=== PATIENT | female | born 1940 | race Caucasian/White ===

== ENCOUNTER → 2018-05-09 | Outpatient (REF) ==
[~2018-05-09] MED LIST: ATIVAN 2MG2 MG PO; CELEXA20 MG PO; FLUTICASON0.05 MG/Ac NS; LASIX40 MG PO; METHADONE10 MG PO; NITROSTAT0.4 MG SL; PEPCID AC20 M1 PO; PREMARIN 0.60.625 M1 PO; ULTRAM 50MG TAB50 MG PO; VENTOLIN0.09 MG IH
== END ==
LOC: ZLAB.WCH 16:24
DX: Z01.89 Encounter for other specified special examinations (principal)

== ENCOUNTER → 2018-12-30 | Outpatient (REF) | LOC: ZLAB.WCH 09:29 | DX: Z01.89 Encounter for other specified special examinations (principal) ==